=== PATIENT | male | born 1940 | race Caucasian/White ===

== ENCOUNTER 2017-04-16 08:20 | Emergency (ER) | payer MEDICARE ==
[~2017-04-16] VITALS: Ht 185.4 cm; Wt 97.0 kg
[~2017-04-16 08:20] MED LIST: ADLT ASA LOW81 MG PO; ADVAIR DISK1 INH; ADVAIR DISKU; COREG25 MG PO; CRESTOR5 MG PO; DILAUDID 2MG2 MG/TA1 PO; FLOMAX0.4 M1 PO; FLUOXETINE10 M2 PO; HYDROCHLOROT25 MG PO; MEDDOSEPAK OR; MULTI VIT PO; PRILOSEC20 MG PO; TIKOSYN500 MCG PO; VICODIN1 TA1 PO; WARFARIN7.5 MG PO; ZETIA10 MG PO
[2017-04-16] MEDS ORDERED: HYDROCO/APAP1 T13 PO (08:58)
[2017-04-16 12:09] VITALS: BP 131/77
== END 2017-04-16 12:21 | disposition home or self-care (01) ==
LOC: ED 08:20
PROC: 3E0U3BZ Introduction of Anesthetic Agent into Joints, Percutaneous Approach (ICD-10-PCS; principal; 2017-04-16)
PROC: 3E0U33Z Introduction of Anti-inflammatory into Joints, Percutaneous Approach (ICD-10-PCS; 2017-04-16)
DX: M25.512 Pain in left shoulder (principal); J44.9 Chronic obstructive pulmonary disease, unspecified; I25.10 Atherosclerotic heart disease of native coronary artery without angina pectoris; I10 Essential (primary) hypertension; E78.00 Pure hypercholesterolemia, unspecified; Z95.1 Presence of aortocoronary bypass graft

== ENCOUNTER 2017-12-05 06:37 | Emergency (ER) | payer MEDICARE ==
[~2017-12-05] VITALS: Ht 185.4 cm; Wt 100.0 kg
[~2017-12-05 06:37] MED LIST changes: +HYDROCO/APAP1 T13 PO
[2017-12-05] MEDS ORDERED: SOTALOL HCL80 MG PO (06:53)
[2017-12-05] MEDS ORDERED: METOPROL TAR25 MG PO (06:54)
[2017-12-05 07:06] LABS: HEMATOCRIT 45.9 % (39.0-50.0); HEMOGLOBIN 14.7 g/dl (14.0-18.0); IMMATURE GRANULOCYTES 0.4 % (0.0-1.0); MEAN CORPUSCULAR HGB 28.8 pG CALC (26.0-32.0); NEUT# 5.52 thou/uL (1.82-7.42); RED BLOOD COUNT 5.1 mill/uL (4.70-6.10); RED CELL DISTRI WIDTH 14.3 % (11.5-15.5)
[2017-12-05 07:19] LABS: ALBUMIN 4.3 g/dL (3.2-5.0); ALKALINE PHOSPHATASE 56 u/l (38-126); ANION GAP 9 (6-22 (CALC)); BILIRUBIN, TOTAL 0.8 mg/dL (0.0-1.4); BUN 19 mg/dL (8-23); BUN/CREATININE RATIO 22 (12-20 (CALC)); CARBON DIOXIDE 31 mmol/l (22-30); CHLORIDE 101 mmol/l (95-108); CREATININE 0.8 mg/dL (0.7-1.3); GFR > 60 ML/MIN (>=60 (CALC)); GFR FOR AFR.AMER. > 60 ML/MIN (>=60 (CALC)); POTASSIUM 4.7 mmol/l (3.5-5.1); SGOT/AST 21 u/l (19-48); SGPT/ALT 31 u/l (11-66); SODIUM 137 mmol/l (137-146); TOTAL PROTEIN 7.3 g/dL (6.3-8.2)
[2017-12-05 07:21] LABS: INTERNATIONAL NORMALIZED RATIO 3.2 RATIO (0.7-1.3)
[2017-12-05 07:32] LABS: MYOGLOBIN 37 ng/mL (0 - 121); PROTHROMBIN TIME 36.8 SECONDS (9.0-12.5)
[2017-12-05] MEDS ORDERED: K-TAB20 MEQ PO (07:43)
[2017-12-05] MEDS ORDERED: LASIX 40 MG TAB40 MG PO (07:43)
[2017-12-05] MEDS ORDERED: PROAIR HFA108 MCG/AC PO (07:45)
[2017-12-05 08:21] VITALS: BP 114/79
== END 2017-12-05 08:21 | disposition home or self-care (01) ==
LOC: ED 06:37
PROVIDERS: Emergency Medicine
DX: I48.91 Unspecified atrial fibrillation (principal); I11.0 Hypertensive heart disease with heart failure; I50.9 Heart failure, unspecified; J44.9 Chronic obstructive pulmonary disease, unspecified; I25.10 Atherosclerotic heart disease of native coronary artery without angina pectoris; Z95.1 Presence of aortocoronary bypass graft; R06.02 Shortness of breath

== ENCOUNTER 2019-04-15 10:56 | Emergency (ER) | payer MEDICARE ==
[~2019-04-15] VITALS: Ht 185.4 cm; Wt 85.0 kg
[~2019-04-15 10:56] MED LIST changes: +K-TAB20 MEQ PO; +LASIX 40 MG TAB40 MG PO; +METOPROL TAR25 MG PO; +PROAIR HFA108 MCG/AC PO; +SOTALOL HCL80 MG PO
[2019-04-15] MEDS ORDERED: ENTRESTO 24-261 TAB PO (11:24)
[2019-04-15] MEDS ORDERED: COUMADIN5 MG PO (11:25)
[2019-04-15 12:04] LABS: HEMATOCRIT 41.4 % (39.0-50.0); HEMOGLOBIN 13.6 g/dl (14.0-18.0); IMMATURE GRANULOCYTES 0.4 % (0.0-5.0); MEAN CORPUSCULAR HGB 30.8 pG CALC (26.0-32.0); MEAN CORPUSCULAR HGB CONC 32.9 g/L CALC (32.0-36.0); NEUT# 3.19 thou/uL (1.82-7.42); RED BLOOD COUNT 4.42 mill/uL (4.70-6.10); RED CELL DISTRI WIDTH 14.2 % (11.5-15.5)
[2019-04-15 12:25] LABS: ANION GAP 13 (6-22 (CALC)); BUN 17 mg/dL (8-23); BUN/CREATININE RATIO 26 (12-20 (CALC)); CARBON DIOXIDE 27 mmol/l (22-30); CHLORIDE 100 mmol/l (95-108); CREATININE 0.6 mg/dL (0.7-1.3); GFR > 60 ML/MIN (>=60 (CALC)); GFR FOR AFR.AMER. > 60 ML/MIN (>=60 (CALC)); MEAN CELL VOLUME 93.7 fL CALC (80.0-100.0); POTASSIUM 4.5 mmol/l (3.5-5.1); SODIUM 136 mmol/l (137-146)
[2019-04-15 12:59] VITALS: BP 133/72
== END 2019-04-15 12:59 | disposition home or self-care (01) ==
LOC: ED 10:56
PROVIDERS: Family Medicine
DX: T82.897A Other specified complication of cardiac prosthetic devices, implants and grafts, initial encounter (principal); I10 Essential (primary) hypertension; J44.9 Chronic obstructive pulmonary disease, unspecified; I25.10 Atherosclerotic heart disease of native coronary artery without angina pectoris; I48.91 Unspecified atrial fibrillation; Y83.1 Surgical operation with implant of artificial internal device as the cause of abnormal reaction of the patient, or of later complication, without mention of misadventure at the time of the procedure; Z95.1 Presence of aortocoronary bypass graft

== ENCOUNTER 2020-04-04 18:54 | Emergency (ER) | payer MEDICARE ==
[~2020-04-04] VITALS: Ht 185.4 cm; Wt 90.9 kg
[~2020-04-04 18:54] MED LIST changes: +COUMADIN5 MG PO; +ENTRESTO 24-261 TAB PO
--- NOTE | 2020-04-04 18:55 | NUR ---
PATIENT TO ROOM 15 VIA WHEELCHAIR. TRIAGE COMPLETED AT BEDSIDE.
[2020-04-04] MEDS ORDERED: CRESTOR10 MG PO (19:36)
[2020-04-04] MEDS ORDERED: CARVEDILOL6.25 MG PO (19:37)
[2020-04-04] MEDS ORDERED: DIGOXIN0.125 MG PO (19:37)
--- NOTE | 2020-04-04 20:10 | NUR ---
PT PRESENTED WITH SOB STATING THAT HE HAS BEEN HAVING A FEVER FOR A FEW DAYS NOW AND THAT THE SOB HAS GOTTEN WORSE. LUNGS SOUNDS HAVE CRACKLES IN BOTH LUNGS AFIBRILE. HAS VOMITING CONSTANTLY WITH NO DIARRHEA. WILL CONTINUE TO MONITOR.
[2020-04-04 20:15] LABS: HEMATOCRIT 45.3 % (39.0-50.0); HEMOGLOBIN 14.8 g/dl (14.0-18.0); IMMATURE GRANULOCYTES 0.5 % (0.0-5.0); MEAN CELL VOLUME 91.9 fL CALC (80.0-100.0); MEAN CORPUSCULAR HGB CONC 32.7 g/dL CAL (32.0-36.0); NEUT# 11.56 thou/uL (1.82-7.42); RED BLOOD COUNT 4.93 mill/uL (4.70-6.10); RED CELL DISTRI WIDTH 13.8 % (11.5-15.5)
--- NOTE | 2020-04-04 20:20 | NUR ---
I WAS CALLED TO RADIOLOGY BECAUSE PT IS NOT RESPONDING TO PT ONLY HAVING LABORED BREATHING. I ARRIVE, PT WAS SITTING UP WITH EYES CLOSED BREATHING HARD WITH MOUTH OPEN. OCCATIONALLY PT WOULD OPEN EYES BUT WOULD NOT ANSWER BACK. PT WAS TAKEN BACK TO ROOM IMMEDIATLY, VITALS RETAKEN. O2 AT 95% AND OTHER VITALS WNL. NOTIFIED AND HE STATED TO JUST MAKE SURE TO ATTACH FLUIDS BECAUSE PT MAY HAVE BECAME TIRED AFTER PHYNERGAN ADMIN. EXAMINED PT. WILL CONTINUE TO MONITOR.
[2020-04-04 20:37] LABS: ALBUMIN 4.2 g/dL (3.2-5.0); ALKALINE PHOSPHATASE 68 u/l (38-126); AMYLASE 31 u/l (30-110); ANION GAP 14 (6-22 (CALC)); BUN 25 mg/dL (8-23); BUN/CREATININE RATIO 33 (12-20 (CALC)); CARBON DIOXIDE 28 mmol/l (22-30); CHLORIDE 98 mmol/l (95-108); CREATININE 0.7 mg/dL (0.7-1.3); GFR > 60 ML/MIN (>=60 (CALC)); GFR FOR AFR.AMER. > 60 ML/MIN (>=60 (CALC)); LIPASE 11 u/l (23-300); POTASSIUM 4.6 mmol/l (3.5-5.1); SGOT/AST 26 u/l (19-48); SODIUM 136 mmol/l (137-146)
[2020-04-04 20:38] LABS: BILIRUBIN, TOTAL 1.8 mg/dL (0.0-1.4)
--- NOTE | 2020-04-04 21:37 | NUR ---
PT IS RESTING WITH EYES CLOSED, AT BEDSIDE. CALL LIGHT WITHIN REACH. PT IS TOO TIRED TO RESPOND. FLUIDS COMPLETED AND ANTIBIOTICS INFUSING. UPDATED ON RESULTS OF EXAMS. WILL CONTNUE TO MONITOR.
--- NOTE | 2020-04-04 21:50 | NUR ---
GAVE REPORT TO RICH
--- NOTE | 2020-04-04 21:55 | NUR ---
RECEIVED REPORT FROM RONAN LAI. PT TO BE ADMITTED, WAITING ON ORDERS.
--- NOTE | 2020-04-04 22:23 | NUR ---
AT NURSES STATION ASKING WHAT ROOM PT GOING TO AND IF IT WAS COVID ROOM. INFORMED YES IT IS IN THE COVID [facility]. ASKED WHY DOES HE HAVE TO GO THERE SINCE HE DOESN'T HAVE COVID. INFORMED UNTIL HIS SWAB COMES BACK TO R/O COVID HE HAS TO BE IN THAT AREA DUE TO SYMPTOMS. PT DX WITH PNEUMONIA. STATES SHE WILL TAKE HIM HOME FIRST SHE DOESN'T WANT PT TO GO TO THE COVID AREA.
--- NOTE | 2020-04-04 22:28 | NUR ---
DR BHAKTA IN TO TALK TO AND PT.
[2020-04-04] MEDS ORDERED: DOXYCYCL HYC100 MG PO (22:32)
[2020-04-04 22:40] VITALS: BP 156/81
--- NOTE | 2020-04-04 22:40 | NUR ---
SIGNED AMA FORM AND INFORMED HER DR BHAKTA SENT PRESCRIPTION TO PHARMACY. WHEELED PT OUT TO BACK SEAT OF TRUCK. ASKED I WAS WHEELING PT OUT OF HOSPITAL IF PT WAS ABLE TO GET UP IN A TRUCK AND STATED "HE GOT OUT OF IT HE CAN GET IN IT" IT TOOK PT A WHILE TO GET INTO TRUCK. Patient decides to leave AMA. Multiple attempts made to ecourage patient to remain here for continued treatment. Explained to patient all risks of leaving against medical advice including . Pt verbalized understanding of all risks. Pt also encouraged to return to [facility] at any time, especially if symptoms continue or become worse. Pt verbalized understanding.
== END 2020-04-04 22:40 | disposition left against medical advice (07) ==
LOC: ED 18:54 → ED-I 21:12 → ED 21:24 → MS2 21:25 → ED 21:25
PROVIDERS: Family Medicine
DX: J18.9 Pneumonia, unspecified organism (principal); I10 Essential (primary) hypertension; J43.9 Emphysema, unspecified; I25.10 Atherosclerotic heart disease of native coronary artery without angina pectoris; I48.91 Unspecified atrial fibrillation; Z95.1 Presence of aortocoronary bypass graft; Z20.828 Contact with and (suspected) exposure to other viral communicable diseases; Z91.19 Patient's noncompliance with other medical treatment and regimen